=== PATIENT | male | born 1985 | race African-American/Black ===

== ENCOUNTER 2018-07-16 08:39 | Emergency (ER) | payer OTHER ==
[~2018-07-16] VITALS: Ht 172.7 cm; Wt 76.0 kg
[2018-07-16 08:48] VITALS: BP 131/76
[2018-07-16] MEDS ORDERED: BACDS PO (09:14)
[2018-07-16] MEDS ORDERED: TETanus/Pertussis (Acell)/Diphther VAC/PF (Tdap-Adult) 0.5ml syringe IMVAC ONE (09:20)
== END 2018-07-16 09:51 | disposition home or self-care (01) ==
LOC: ER 08:41
DX: L02.512 Cutaneous abscess of left hand (principal); F12.90 Cannabis use, unspecified, uncomplicated; Z79.899 Other long term (current) drug therapy
CPT/HCPCS: 90471; 90715; 99283

== ENCOUNTER 2018-11-22 16:44 | Emergency (ER) | payer MEDICAID ==
[~2018-11-22] VITALS: Ht 172.7 cm; Wt 78.8 kg
[2018-11-22 17:07] VITALS: BP 121/69
[2018-11-22] MEDS ORDERED: CEPH-571 PO (17:50)
== END 2018-11-22 18:03 | disposition home or self-care (01) ==
LOC: ER 16:45
DX: L03.114 Cellulitis of left upper limb (principal); L03.113 Cellulitis of right upper limb; L30.9 Dermatitis, unspecified; F12.10 Cannabis abuse, uncomplicated
CPT/HCPCS: 99283